=== PATIENT | male | born 1960 | race Caucasian/White ===

== ENCOUNTER 2021-06-16 12:44 | Emergency (ER) | payer OTHER ==
[~2021-06-16] VITALS: Ht 190.5 cm; Wt 117.9 kg
[2021-06-16 13:32] LABS: CLARITY,URINE TURBID (CLEAR); COLOR,URINE YELLOW (YELLOW); LEUKOCYTE ESTERASE ,URINE SMALL (NEGATIVE); NITRITE,URINE POSITIVE (NEGATIVE); PROTEIN,URINE DIPSTICK 2+ (NEGATIVE)
[2021-06-16 13:33] LABS: KETONES,URINE NEGATIVE (NEGATIVE); URINE UROBILINOGEN 1 mg/dL (0.2 - 1)
[2021-06-16 13:41] LABS: RBC,URINE 21-50 /HPF (0-5); WBC,URINE (MAN) 21-50 /HPF (0-5)
[2021-06-16 13:42] LABS: BACTERIA,URINE MANY /HPF
[2021-06-16] MEDS ORDERED: AUGMENTIN 500-1 EACH PO (14:05)
== END 2021-06-16 15:11 | disposition home or self-care (01) ==
LOC: ER 12:46
DX: N39.0 Urinary tract infection, site not specified (principal); Z87.442 Personal history of urinary calculi; Z20.822 Contact with and (suspected) exposure to COVID-19
CPT/HCPCS: 81001; 87086; 99283; U0002; 87186

== ENCOUNTER → 2022-03-16 | Outpatient (CLI) | payer OTHER ==
[~2022-03-16] MED LIST: AUGMENTIN 500-1 EACH PO
== END ==
LOC: CT 12:37
PROVIDERS: ATTEND Urology
DX: N20.0 Calculus of kidney (principal)
CPT/HCPCS: 74176

== ENCOUNTER 2022-08-27 15:01 | Emergency (ER) | payer OTHER ==
[~2022-08-27] VITALS: Ht 190.5 cm; Wt 117.9 kg
[2022-08-27] MEDS ORDERED: BACTRIM DS TAB1 EACH PO (17:57)
[2022-08-27] MEDS ORDERED: CEPHALEXIN500 MG PO (17:57)
== END 2022-08-27 18:18 | disposition home or self-care (01) ==
LOC: ER 15:40
DX: S91.001A Unspecified open wound, right ankle, initial encounter (principal); L03.115 Cellulitis of right lower limb; Z87.442 Personal history of urinary calculi
CPT/HCPCS: 99283

== ENCOUNTER 2022-08-29 08:09 | Inpatient (IN) | payer OTHER ==
[~2022-08-29] VITALS: Ht 190.5 cm; Wt 122.5 kg
[~2022-08-29 08:09] MED LIST changes: +BACTRIM DS TAB1 EACH PO; +CEPHALEXIN500 MG PO
[2022-08-29] MEDS ORDERED: SODIUM CHLORIDE 0.9% 1000ML 1,000 ML IV STA (08:24)
[2022-08-29] MEDS ORDERED: Vancomycin IV 1 GM in SODIUM CHLORIDE 0.9% 250ML 250 ML IV STA (08:24)
[2022-08-29 08:56] LABS: BASOPHILS % 0.7 % (0.0-1.0); EOSINOPHILS # (AUTO) 0.1 (0.0-0.4); EOSINOPHILS % 2.2 % (0.0-6.0); HEMOGLOBIN 12.3 g/dL (14.0-18.0); LYMPHOCYTES # (AUTO) 0.9 (1.0-3.2); LYMPHOCYTES % 19.1 % (18.0-39.1); MEAN CORPUSCULAR HEMOGLOBIN 34.6 pg (28-32); MEAN CORPUSCULAR HGB CONC 35.1 g/dL (31-35); MEAN CORPUSCULAR VOLUME 98.3 fL (81-99); MONOCYTES # (AUTO) 0.5 (0.2-0.8); MONOCYTES % 11.7 % (4.4-11.3); NEUTROPHILS # (AUTO) 2.9 (2.1-6.9); NEUTROPHILS % 65.4 % (38.7-80.0); PLATELET COUNT 99 x10e3/uL (140-360); RED BLOOD COUNT 3.56 x10e6/uL (4.3-5.7); RED CELL DISTRIBUTION WIDTH 12.6 % (11.7-14.4)
[2022-08-29 09:22] LABS: ALANINE AMINOTRANSFERASE 21 IU/L (0-55); ALBUMIN 2.5 g/dL (3.5-5.0); ALBUMIN/GLOBULIN RATIO 0.6 (0.8-2.0); ALKALINE PHOSPHATASE 79 IU/L (40-150); ANION GAP 13.6 mmol/L (8-16); BLOOD UREA NITROGEN 13 mg/dL (7-26); BUN/CREATININE RATIO 18 (6-25); CALCIUM 8.6 mg/dL (8.4-10.2); CARBON DIOXIDE 22 mmol/L (22-29); CHLORIDE 105 mmol/L (98-107); CREATINE KINASE 52 IU/L (30-200); CREATININE, SERUM 0.73 mg/dL (0.72-1.25); GLUCOSE 222 mg/dL (74-118); MAGNESIUM 1.6 MG/DL (1.3-2.1); POTASSIUM 3.6 mmol/L (3.5-5.1); SODIUM 137 mmol/L (136-145)
[2022-08-29 09:24] LABS: INR 1.21; PROTHROMBIN TIME 15.8 seconds (11.9-14.5)
[2022-08-29 09:25] LABS: PARTIAL THROMBOPLASTIN TIME 38.3 seconds (23.8-35.5)
[2022-08-29] MEDS ORDERED: IOPAMIDOL 370 MG/ML 100 ML INFUS..BTL INJ ONE (09:44)
[2022-08-29] MEDS ORDERED: ONDANSETRON HCL INJ 2MG/ML 2ML 2 MG/ML VIAL IV PRN (09:45)
[2022-08-29] MEDS ORDERED: BUPIVACAINE 0.25% 30ML SDV ONE (13:30)
[2022-08-29 13:50] VITALS: BP 133/74
[2022-08-29 16:36] VITALS: BP 135/81
[2022-08-29] MEDS ORDERED: FINASTERIDE5 MG PO (17:20)
[2022-08-29] MEDS ORDERED: LISINOPRIL5 MG PO (17:20)
[2022-08-29] MEDS ORDERED: FLOMAX0.4 MG PO (17:20)
[2022-08-29] MEDS ORDERED: COREG6.25 MG PO (17:20)
[2022-08-29] MEDS: IBUPROFEN 600 MG TAB PO PRN ×2 (18:19→23:00)
[2022-08-29 20:43] VITALS: BP 128/76
[2022-08-29 21:00] VITALS: BP 128/76
[2022-08-29] MEDS ORDERED: SODIUM CHLORIDE 0.9% 250ML 250 ML ONE (21:09)
[2022-08-29] MEDS: Vancomycin IV 1 GM in SODIUM CHLORIDE 0.9% 250ML 250 ML IV SCH (22:30)
[2022-08-30] VITALS (7 sets, daily range): BP systolic 115–136; BP diastolic 62–78
[2022-08-30 06:01] LABS: BASOPHILS % 0.4 % (0.0-1.0); EOSINOPHILS # (AUTO) 0.2 (0.0-0.4); EOSINOPHILS % 4.3 % (0.0-6.0); HEMATOCRIT 33.9 % (38.2-49.6); HEMOGLOBIN 12.3 g/dL (14.0-18.0); LYMPHOCYTES # (AUTO) 1.1 (1.0-3.2); LYMPHOCYTES % 23.6 % (18.0-39.1); MEAN CORPUSCULAR HEMOGLOBIN 37.2 pg (28-32); MEAN CORPUSCULAR HGB CONC 36.3 g/dL (31-35); MEAN CORPUSCULAR VOLUME 102.4 fL (81-99); MONOCYTES # (AUTO) 0.7 (0.2-0.8); MONOCYTES % 14.5 % (4.4-11.3); NEUTROPHILS # (AUTO) 2.7 (2.1-6.9); NEUTROPHILS % 56.3 % (38.7-80.0); PLATELET COUNT 85 x10e3/uL (140-360); RED BLOOD COUNT 3.31 x10e6/uL (4.3-5.7); RED CELL DISTRIBUTION WIDTH 13.1 % (11.7-14.4)
[2022-08-30] MEDS ORDERED: Vancomycin IV 1 GM VIAL ONE (06:26)
[2022-08-30 06:28] LABS: ANION GAP 10.8 mmol/L (8-16); CREATININE, SERUM 0.71 mg/dL (0.72-1.25); POTASSIUM 3.8 mmol/L (3.5-5.1)
[2022-08-30] MEDS ORDERED: ACETAMINOPHEN 1000 MG/100 ML 100 ML IV ONE (06:32)
[2022-08-30] MEDS ORDERED: COREG6.25 MG PO (08:37)
[2022-08-30] MEDS: TAMSULOSIN HCL 0.4 MG CAP PO SCH (09:19)
[2022-08-30] MEDS: FINASTERIDE 5 MG TAB PO SCH (09:19)
[2022-08-30] MEDS: Vancomycin IV 1 GM in SODIUM CHLORIDE 0.9% 250ML 250 ML IV SCH ×2 (09:20→22:06)
[2022-08-30] MEDS: LISINOPRIL 2.5 MG TAB PO SCH (09:20)
[2022-08-30] MEDS ORDERED: ONDANSETRON HCL INJ 2MG/ML 2ML 2 MG/ML VIAL ONE (13:25)
[2022-08-30] MEDS ORDERED: KETOROLAC TROMETHAMINE 30 MG/ML VIAL ONE (13:25)
[2022-08-30] MEDS ORDERED: SEVOFLURANE INHAL SOLN 250 ML PEN BTL ONE (13:25)
[2022-08-30] MEDS ORDERED: PROPOFOL IV EMULSION 10 MG/ML 20 ML VIAL ONE (13:25)
[2022-08-30] MEDS ORDERED: POVIDONE IODINE 0.05% 0.05 % ML PO ONE (13:25)
[2022-08-30] MEDS ORDERED: DEXAMETHASONE SOD PHOS INJ 4 MG/ML SDV ONE (13:25)
[2022-08-30] MEDS ORDERED: LIDOCAINE HCL 2% LOCAL INJ 5 ML SDV VIAL INJ ONE (13:25)
[2022-08-30] MEDS ORDERED: MIDAZOLAM HCL 2 MG/2 ML VIAL ONE (13:57)
[2022-08-30] MEDS ORDERED: FENTANYL CITRATE/PF 100MCG/2 ML INJ ONE (13:57)
[2022-08-31] VITALS (8 sets, daily range): BP systolic 129–138; BP diastolic 72–84
[2022-08-31] MEDS: TAMSULOSIN HCL 0.4 MG CAP PO SCH (09:37)
[2022-08-31] MEDS: FINASTERIDE 5 MG TAB PO SCH (09:37)
[2022-08-31] MEDS: Vancomycin IV 1 GM in SODIUM CHLORIDE 0.9% 250ML 250 ML IV SCH ×2 (09:37→22:30)
[2022-08-31] MEDS: LISINOPRIL 2.5 MG TAB PO SCH (09:38)
[2022-08-31] MEDS ORDERED: ONDANSETRON HCL 4 MG ORAL DISINTEGRATING TAB PO PRN (13:30)
[2022-08-31] MEDS: CARVEDILOL 3.125 MG TAB PO SCH (19:27)
[2022-09-01 01:54] VITALS: BP 170/119
[2022-09-01 05:20] VITALS: BP 118/80
[2022-09-01 08:20] VITALS: BP 155/90
[2022-09-01 08:24] VITALS: BP 155/90
[2022-09-01] MEDS: Vancomycin IV 1 GM in SODIUM CHLORIDE 0.9% 250ML 250 ML IV SCH (08:29)
[2022-09-01] MEDS: CARVEDILOL 3.125 MG TAB PO SCH ×2 (08:30→16:40)
[2022-09-01] MEDS: LISINOPRIL 2.5 MG TAB PO SCH (08:31)
[2022-09-01] MEDS: TAMSULOSIN HCL 0.4 MG CAP PO SCH (08:31)
[2022-09-01] MEDS: FINASTERIDE 5 MG TAB PO SCH (08:31)
[2022-09-01] MEDS: IBUPROFEN 600 MG TAB PO PRN ×3 (08:33→19:41)
[2022-09-01 11:55] VITALS: BP 131/72
[2022-09-01 16:16] VITALS: BP 127/70
[2022-09-02] VITALS (8 sets, daily range): BP systolic 117–143; BP diastolic 62–81
[2022-09-02] MEDS ORDERED: SODIUM CHLORIDE 0.9% 100 ML ONE (05:55)
[2022-09-02] MEDS: IBUPROFEN 600 MG TAB PO PRN ×3 (07:02→21:24)
[2022-09-02] MEDS: TAMSULOSIN HCL 0.4 MG CAP PO SCH (09:01)
[2022-09-02] MEDS: LISINOPRIL 2.5 MG TAB PO SCH (09:01)
[2022-09-02] MEDS: FINASTERIDE 5 MG TAB PO SCH (09:02)
[2022-09-02] MEDS: CARVEDILOL 3.125 MG TAB PO SCH ×2 (09:02→17:29)
[2022-09-03 00:57] VITALS: BP 110/72
[2022-09-03] MEDS: IBUPROFEN 600 MG TAB PO PRN ×4 (04:24→21:48)
[2022-09-03 04:39] VITALS: BP 100/64
[2022-09-03 09:35] VITALS: BP 100/64
[2022-09-03 09:53] VITALS: BP 128/72
[2022-09-03] MEDS: LISINOPRIL 2.5 MG TAB PO SCH (09:55)
[2022-09-03] MEDS: FINASTERIDE 5 MG TAB PO SCH (09:56)
[2022-09-03] MEDS: CARVEDILOL 3.125 MG TAB PO SCH ×2 (09:56→16:28)
[2022-09-03] MEDS: TAMSULOSIN HCL 0.4 MG CAP PO SCH (09:56)
[2022-09-03 10:28] LABS: BASOPHILS % 0.5 % (0.0-1.0); EOSINOPHILS # (AUTO) 0.2 (0.0-0.4); EOSINOPHILS % 3.7 % (0.0-6.0); HEMATOCRIT 36.2 % (38.2-49.6); HEMOGLOBIN 12.6 g/dL (14.0-18.0); LYMPHOCYTES # (AUTO) 1.1 (1.0-3.2); LYMPHOCYTES % 24.3 % (18.0-39.1); MEAN CORPUSCULAR HEMOGLOBIN 34.7 pg (28-32); MEAN CORPUSCULAR HGB CONC 34.8 g/dL (31-35); MEAN CORPUSCULAR VOLUME 99.7 fL (81-99); MONOCYTES # (AUTO) 0.5 (0.2-0.8); MONOCYTES % 10.6 % (4.4-11.3); NEUTROPHILS # (AUTO) 2.6 (2.1-6.9); NEUTROPHILS % 60.7 % (38.7-80.0); PLATELET COUNT 123 x10e3/uL (140-360); RED BLOOD COUNT 3.63 x10e6/uL (4.3-5.7); RED CELL DISTRIBUTION WIDTH 12.5 % (11.7-14.4)
[2022-09-03 10:58] LABS: ALBUMIN 2.5 g/dL (3.5-5.0); ALBUMIN/GLOBULIN RATIO 0.6 (0.8-2.0); ANION GAP 13.4 mmol/L (8-16); CALCIUM 8.4 mg/dL (8.4-10.2); CREATININE, SERUM 0.69 mg/dL (0.72-1.25); POTASSIUM 4.4 mmol/L (3.5-5.1)
[2022-09-03 20:00] VITALS: BP 128/77
[2022-09-03 21:11] VITALS: BP 128/77
[2022-09-04 01:35] VITALS: BP 131/87
[2022-09-04 05:03] VITALS: BP 118/78
[2022-09-04] MEDS: IBUPROFEN 600 MG TAB PO PRN (05:59)
[2022-09-04 08:11] VITALS: BP 136/85
[2022-09-04 08:45] VITALS: BP 136/85
[2022-09-04] MEDS: CARVEDILOL 3.125 MG TAB PO SCH ×2 (09:01→16:32)
[2022-09-04] MEDS: TAMSULOSIN HCL 0.4 MG CAP PO SCH (09:01)
[2022-09-04] MEDS: FINASTERIDE 5 MG TAB PO SCH (09:01)
[2022-09-04] MEDS: LISINOPRIL 2.5 MG TAB PO SCH (09:01)
[2022-09-04 11:58] VITALS: BP 115/67
[2022-09-04] MEDS ORDERED: DAPTOMYCIN 500mg 10ML 500 MG in SODIUM CHLORIDE 0.9% 100 ML IV SCH (15:00)
[2022-09-04 16:33] VITALS: BP 115/66
== END 2022-09-04 16:56 | disposition home or self-care (01) | DRG 493 ==
LOC: ER 08:14 → ERHOLD 09:40 → MED/SURG2 13:40
PROVIDERS: ADMIT Family Medicine; ATTEND Family Medicine
PROC: 0QPJ04Z Removal of Internal Fixation Device from Right Fibula, Open Approach (ICD-10-PCS; 2022-08-30)
PROC: 0QPG04Z Removal of Internal Fixation Device from Right Tibia, Open Approach (ICD-10-PCS; 2022-08-30)
PROC: 0QCG0ZZ Extirpation of Matter from Right Tibia, Open Approach (ICD-10-PCS; principal; 2022-08-30 07:12)
PROC: 02HV33Z Insertion of Infusion Device into Superior Vena Cava, Percutaneous Approach (ICD-10-PCS; 2022-08-31)
DX: M86.9 Osteomyelitis, unspecified (principal); L03.115 Cellulitis of right lower limb; I10 Essential (primary) hypertension; N40.0 Benign prostatic hyperplasia without lower urinary tract symptoms; A49.01 Methicillin susceptible Staphylococcus aureus infection, unspecified site; Z20.822 Contact with and (suspected) exposure to COVID-19
CPT/HCPCS: 0223U; 36415; 36569; 71045; 76000; 80048; 80053; 80202; 82550; 82553; 83036; 83735; 83880; 84484; 85025; 85610; 85730; 86140; 87040; 87071; 87075; 87186; 87205; 93971; 99284; C1713; J0690; J1100; J1885; J2001; J2250; J2405; J2543; J7030; J7050; Q9967

== ENCOUNTER 2022-11-21 08:14 | Inpatient (IN) | payer OTHER ==
[~2022-11-21] VITALS: Ht 180.3 cm; Wt 123.8 kg
[~2022-11-21 08:14] MED LIST changes: +COREG6.25 MG PO; +FINASTERIDE5 MG PO; +FLOMAX0.4 MG PO; +LISINOPRIL5 MG PO
[2022-11-21] MEDS ORDERED: LACTATED RINGER'S 1,000 ML ONE (09:38)
[2022-11-21] MEDS ORDERED: BUPIVACAINE HCL 0.5% INJ 30 ML VIAL INJ ONE (10:10)
[2022-11-21] MEDS ORDERED: Vancomycin IV 1 GM VIAL ONE ×2 (10:10→11:39)
[2022-11-21] MEDS ORDERED: GENTAMICIN SULFATE 40 MG/ML 2 ML VIAL ONE (10:10)
[2022-11-21] MEDS ORDERED: MIDAZOLAM HCL 2 MG/2 ML VIAL ONE (12:49)
[2022-11-21] MEDS ORDERED: FENTANYL CITRATE/PF 100MCG/2 ML INJ ONE (12:49)
[2022-11-21] MEDS ORDERED: POVIDONE IODINE 0.05% 0.05 % ML PO ONE (13:05)
[2022-11-21] MEDS ORDERED: PROPOFOL IV EMULSION 10 MG/ML 20 ML VIAL ONE (13:05)
[2022-11-21] MEDS ORDERED: ONDANSETRON HCL INJ 2MG/ML 2ML 2 MG/ML VIAL ONE (13:05)
[2022-11-21] MEDS ORDERED: DEXAMETHASONE SOD PHOS INJ 4 MG/ML SDV ONE (13:05)
[2022-11-21] MEDS ORDERED: SEVOFLURANE INHAL SOLN 250 ML PEN BTL ONE (13:05)
[2022-11-21] MEDS ORDERED: LIDOCAINE HCL 2% LOCAL INJ 5 ML SDV VIAL INJ ONE (13:05)
[2022-11-21 13:29] VITALS: BP 124/76; PULSE 56; RESP 16; TEMP 97.4; O2SAT 99
[2022-11-21 15:07] VITALS: BP 124/76; PULSE 56; RESP 16; TEMP 97.4; O2SAT 99
[2022-11-21 15:36] VITALS: BP 143/88; PULSE 59; RESP 17; TEMP 98.4; O2SAT 99
[2022-11-21 16:27] VITALS: BP 143/88; RESP 17; TEMP 98.4; O2SAT 99
[2022-11-21] MEDS: CEFAZOLIN SODIUM 2 GM in SODIUM CHLORIDE 0.9% 100 ML IV SCH (18:32)
[2022-11-21 20:00] VITALS: BP 143/88; PULSE 59; RESP 17; TEMP 98.4; O2SAT 99
[2022-11-21 20:40] VITALS: BP 131/71; PULSE 68; RESP 18; TEMP 98; O2SAT 98
[2022-11-21] MEDS ORDERED: Vancomycin IV 1 GM in SODIUM CHLORIDE 0.9% 250ML 250 ML IV SCH (22:00)
[2022-11-22] VITALS (7 sets, daily range): BP systolic 115–129; BP diastolic 52–88; PULSE 55–67; RESP 17–19; TEMP 97.6–98.3; O2SAT 97–100
[2022-11-22] MEDS: CEFAZOLIN SODIUM 2 GM in SODIUM CHLORIDE 0.9% 100 ML IV SCH ×3 (01:29→16:47)
[2022-11-22] MEDS ORDERED: SODIUM CHLORIDE 0.9% 250ML 250 ML ONE (08:59)
[2022-11-22] MEDS: CARVEDILOL 3.125 MG TAB PO SCH (17:54)
[2022-11-23] VITALS (9 sets, daily range): BP systolic 109–146; BP diastolic 63–90; PULSE 59–81; RESP 18–22; TEMP 97.7–98.2; O2SAT 96–99
[2022-11-23] MEDS: CEFAZOLIN SODIUM 2 GM in SODIUM CHLORIDE 0.9% 100 ML IV SCH ×3 (00:56→17:37)
[2022-11-23] MEDS: FINASTERIDE 5 MG TAB PO SCH (08:47)
[2022-11-23] MEDS: TAMSULOSIN HCL 0.4 MG CAP PO SCH (08:47)
[2022-11-23] MEDS: LISINOPRIL 2.5 MG TAB PO SCH (08:48)
[2022-11-23] MEDS: CARVEDILOL 3.125 MG TAB PO SCH ×2 (08:48→17:38)
[2022-11-23] MEDS ORDERED: HYDROCODONE/APAP 10MG-325MG TAB PO PRN (09:15)
[2022-11-23] MEDS ORDERED: HYDROMORPHONE 1MG/1ML INJ IV PRN (09:15)
[2022-11-23] MEDS ORDERED: HYDROCODONE/APAP 5MG-325MG TAB PO PRN (09:15)
[2022-11-24 00:17] VITALS: BP 124/68; PULSE 66; RESP 18; TEMP 98.1; O2SAT 97
[2022-11-24] MEDS: CEFAZOLIN SODIUM 2 GM in SODIUM CHLORIDE 0.9% 100 ML IV SCH ×3 (00:26→18:13)
[2022-11-24 04:37] VITALS: BP 109/73; PULSE 72; RESP 18; TEMP 97.7; O2SAT 96
[2022-11-24 08:00] VITALS: BP 115/74; PULSE 58; RESP 17; TEMP 98; O2SAT 100
[2022-11-24] MEDS: FINASTERIDE 5 MG TAB PO SCH (10:00)
[2022-11-24] MEDS: CARVEDILOL 3.125 MG TAB PO SCH ×2 (10:01→17:00)
[2022-11-24] MEDS: LISINOPRIL 2.5 MG TAB PO SCH (10:01)
[2022-11-24] MEDS: TAMSULOSIN HCL 0.4 MG CAP PO SCH (10:01)
[2022-11-24 11:29] VITALS: BP 124/84; PULSE 64; RESP 17; TEMP 98.1; O2SAT 100
[2022-11-24 16:00] VITALS: BP 102/54; PULSE 66; RESP 18; TEMP 98.4; O2SAT 98
[2022-11-24] MEDS ORDERED: HYDROCODON-ACE1 EA11 PO (18:39)
== END 2022-11-24 19:35 | disposition home or self-care (01) | DRG 493 ==
LOC: OR 08:14 → PACU V 12:14 → MED/SURG3 13:13
PROVIDERS: ADMIT Orthopaedic Surgery Foot and Ankle Surgery; ATTEND Orthopaedic Surgery Foot and Ankle Surgery
PROC: 0SPF04Z Removal of Internal Fixation Device from Right Ankle Joint, Open Approach (ICD-10-PCS; principal; 2022-11-21 10:48)
DX: T84.69XA Infection and inflammatory reaction due to internal fixation device of other site, initial encounter (principal); L03.115 Cellulitis of right lower limb; T81.31XA Disruption of external operation (surgical) wound, not elsewhere classified, initial encounter; B95.61 Methicillin susceptible Staphylococcus aureus infection as the cause of diseases classified elsewhere; Y79.8 Miscellaneous orthopedic devices associated with adverse incidents, not elsewhere classified; I10 Essential (primary) hypertension; Y92.89 Other specified places as the place of occurrence of the external cause; Z79.899 Other long term (current) drug therapy; I25.2 Old myocardial infarction; Z20.822 Contact with and (suspected) exposure to COVID-19
CPT/HCPCS: 76000; 87071; 87075; 87205; 93005; 96360; J1100; J1580; J2001; J2250; J2405; J7050

== ENCOUNTER → 2023-06-26 | Outpatient (REF) | payer OTHER ==
[~2023-06-26] MED LIST changes: +HYDROCODON-ACE1 EA11 PO
== END ==
LOC: US 15:22
PROVIDERS: ATTEND Urology
DX: N45.2 Orchitis (principal)
CPT/HCPCS: 76870; 93976

== ENCOUNTER → 2023-12-18 | Outpatient (REF) | payer OTHER | LOC: US 09:15 | PROVIDERS: ATTEND Urology | DX: N45.3 Epididymo-orchitis (principal); N43.3 Hydrocele, unspecified | CPT/HCPCS: 76870; 93976 ==

== ENCOUNTER 2024-06-12 06:18 | Day surgery (SDC) | payer MEDICARE, OTHER ==
[2024-06-12] VITALS (16 sets, daily range): BP systolic 106–139; BP diastolic 60–95; PULSE 61–76; RESP 12–21; TEMP 97.6–98; O2SAT 93–99
[~2024-06-12] VITALS: Ht 180.3 cm; Wt 128.8 kg
[~2024-06-12 06:18] MED LIST changes: +ASPIRIN81 MG PO; +CARVEDILOL3.125 MG PO; +METFORMIN HCL500 MG PO
[2024-06-12 07:30] LABS: BASOPHILS % 0.8 % (0.0-1.0); EOSINOPHILS # (AUTO) 0.2 (0.0-0.4); EOSINOPHILS % 5.3 % (0.0-6.0); HEMATOCRIT 49.2 % (38.2-49.6); HEMOGLOBIN 16.5 g/dL (14.0-18.0); LYMPHOCYTES # (AUTO) 1.2 (1.0-3.2); LYMPHOCYTES % 29.8 % (18.0-39.1); MEAN CORPUSCULAR HEMOGLOBIN 33.9 pg (28-32); MEAN CORPUSCULAR HGB CONC 33.5 g/dL (31-35); MONOCYTES # (AUTO) 0.5 (0.2-0.8); MONOCYTES % 12.5 % (4.4-11.3); NEUTROPHILS % 51.3 % (38.7-80.0); PLATELET COUNT 83 x10e3/uL (140-360); RED BLOOD COUNT 4.87 x10e6/uL (4.3-5.7); RED CELL DISTRIBUTION WIDTH 15.3 % (11.7-14.4); WHITE BLOOD COUNT 3.93 x10e3/uL (4.8-10.8)
[2024-06-12 07:43] LABS: INR 1.18; PROTHROMBIN TIME 15.7 seconds (11.9-14.5)
[2024-06-12 08:02] LABS: ALBUMIN 3.1 g/dL (3.5-5.0); ALBUMIN/GLOBULIN RATIO 1.1 (0.8-2.0); ANION GAP 11.8 mmol/L (8-16); BILIRUBIN,TOTAL 2.3 mg/dL (0.2-1.2); CALCIUM 8.6 mg/dL (8.4-10.2); CREATININE, SERUM 0.73 mg/dL (0.72-1.25); POTASSIUM 3.8 mmol/L (3.5-5.1); TOTAL PROTEIN 5.8 g/dL (6.5-8.1)
[2024-06-12] MEDS ORDERED: HEPARIN SOD (PORCINE) 1000 UNIT/ML 30ML ONE (09:58)
[2024-06-12] MEDS ORDERED: VERAPAMIL HCL 2.5 MG/ML 2 ML VIAL ONE (09:58)
[2024-06-12] MEDS ORDERED: NITROGLYCERIN/D5W 200 MCG/ML 250 ML ONE (09:59)
[2024-06-12] MEDS ORDERED: SODIUM CHLORIDE 0.9% 1000ML 1,000 ML ONE (09:59)
[2024-06-12] MEDS ORDERED: IOPAMIDOL 370 MG/ML 100 ML INFUS..BTL INJ ONE (09:59)
[2024-06-12] MEDS ORDERED: HEPARIN SOD/SOD CHLORIDE 2,000 ML ONE (09:59)
[2024-06-12] MEDS ORDERED: LIDOCAINE HCL 2% LOCAL 20 ML VIAL ONE (09:59)
[2024-06-12] MEDS ORDERED: MIDAZOLAM HCL 2 MG/2 ML VIAL ONE (10:07)
[2024-06-12] MEDS ORDERED: FENTANYL CITRATE/PF 100MCG/2 ML INJ ONE (10:07)
== END 2024-06-12 14:15 | disposition home or self-care (01) ==
LOC: CATH LAB 06:18
PROVIDERS: ATTEND Internal Medicine Cardiovascular Disease
DX: I25.10 Atherosclerotic heart disease of native coronary artery without angina pectoris (principal); I25.2 Old myocardial infarction; I11.0 Hypertensive heart disease with heart failure; I50.20 Unspecified systolic (congestive) heart failure; E78.5 Hyperlipidemia, unspecified; E66.9 Obesity, unspecified; Z79.82 Long term (current) use of aspirin; Z79.85 Long-term (current) use of injectable non-insulin antidiabetic drugs; Z79.84 Long term (current) use of oral hypoglycemic drugs; Z79.899 Other long term (current) drug therapy; Z68.41 Body mass index [BMI] 40.0-44.9, adult; Z95.5 Presence of coronary angioplasty implant and graft; Z86.16 Personal history of COVID-19
CPT/HCPCS: 36415; 76937; 80053; 82948; 85025; 85610; 93454; C1769; C1887 ×2; J1644; J2003; J2250; J3010; J7030; Q9967; 99152; 99153